=== PATIENT | male | born 1950 | race Caucasian/White ===

== ENCOUNTER 2018-01-26 21:26 | Observation (INO) ==
--- NOTE | 2018-01-26 21:43 | ED ---
HPI General Chief Complaint: Chest Pain Stated Complaint: Chest pain/left arm numbness Time Seen by Provider: 01/26/18 21:36 Source: patient Mode of arrival: ambulatory Limitations: no limitations History of Present Illness HPI narrative: 67-year-old male presents to the emergency department for complaint of 1 hour of left-sided chest pain radiating to the left upper extremity and subscapular region. Patient states onset at rest. Patient took 2 full-strength aspirin prior to arrival to the emergency department. Patient states initial pain was 6-7/10 in intensity currently is 2/10 in intensity. Patient states left upper extremity involvement has resolved. Patient states he initially felt like he been punched in the chest. Patient states now he has just some mild discomfort. No shortness of breath no sweats no nausea no vomiting no referred neck jaw mid scapular or abdominal pain. Patient has history of previous myocardial infarction in 2002 underwent cardiac catheterization at that time and had stent placement. Last stress test was within the past 1-2 years and was reportedly normal. Patient has an appointment with his director of program management Dr. Fontanez scheduled for next month. Patient has been doing well otherwise is also being treated for hypertension and dyslipidemia. Patient denies tobacco use or diabetes. Patient has premature onset heart disease in his father and brother both of whom in their 60s. MD complaint: Reports chest pain Onset (ago): hour(s) (1) Duration: constant and improved Onset: during rest Pain location: Reports left chest Severity: severe Severity scale (1-10): 7 Quality: Reports aching and other (like being punched) Pain radiation: Reports LUE Relieving factors: nitroglycerin (has medixcation at home but did not take) and other (aspirin) Exacerbating factors: nothing Context: Reports other (none) Associated symptoms: Denies nausea, vomiting, diaphoresis, dyspnea, sense of impending doom, syncope, palpitations and leg swelling Treatments prior to arrival chest pain: Reports aspirin Related Data Allergies Allergy/AdvReac Type Severity Reaction Status Date / Time No Known Allergies Allergy Unverified 01/26/18 21:40 Review of Systems ROS: all other systems reviewed are negative PMFSH History History Provided By: Patient (mi, htn, cholesterol) Medical History Medical History [place], old (Acute) Surgical History Surgical History H/O adenoidectomy (Acute) Hx of heart artery stent (Acute) Social History Social History Substance History: No History of Abuse Second Hand Smoke Exposure: No Smoking Status: Former smoker Tobacco Type: Cigarettes How Often Do You Have a Drink Containing Alcohol: Monthly or less Recent Out of Country Travel within the Last 8 Weeks: No Exam Narrative Exam Narrative: GENERAL: Well-nourished, well-developed patient. SKIN: Focused skin assessment warm/dry. HEAD: Normocephalic. EYES: No scleral icterus. No injection or drainage. NECK: Supple, trachea midline. No JVD or lymphadenopathy. CARDIOVASCULAR: Regular rate and rhythm without murmurs, gallops, or rubs. RESPIRATORY: Breath sounds equal bilaterally. No accessory muscle use. GASTROINTESTINAL: Abdomen soft, non-tender, nondistended. MUSCULOSKELETAL: No cyanosis, or edema. BACK: Nontender without obvious deformity. No CVA tenderness. Course Consultations Consultation #1: Discussed case with patient's director of program management Dr. Devine request patient to be admitted to CICU to medicine service with Nitropaste 1 inch to chest wall and one-time dose of Lovenox administered and consult to Dr. Devine for the a.m. call placed to [facility] for [facility]; per Dr Hemphill --admit to Dr West Time: 22:55 Initial Documented Vital Signs Temperature 98.2 F 01/26/18 21:36 Pulse Rate 71 01/26/18 21:36 Respiratory Rate 15 01/26/18 21:36 Blood Pressure 154/91 H 01/26/18 21:36 Pulse Oximetry 98 01/26/18 21:36 Last Documented Vital Signs Temperature 98.2 F 01/26/18 21:36 Pulse Rate 50 L 01/26/18 22:53 Respiratory Rate 16 01/26/18 22:53 Blood Pressure 120/70 01/26/18 22:53 Pulse Oximetry 97 01/26/18 22:53 Medical Decision Making MDM Narrative Medical decision making narrative: 67-year-old male with known CAD previous MO hypertension and dyslipidemia presents with 1 hour of left-sided chest pain radiating to the left upper extremity and left scapula denies any mid scapular tearing pain patient states left upper extremity symptoms have resolved patient states pain was initially 6-7/10 intensity is presently 2/10 in intensity took 650 mg of aspirin prior to arrival to the emergency department. Has access to nitroglycerin but did not take this medication. Patient is followed by cardiology. Patient placed on rn cardiac IV access obtain EKG performed shows sinus rhythm rate 68 left axis deviation QS anteroseptally age- indeterminate. At 10 PM after 1 sublingual nitroglycerin patient is chest pain-free, 0/10 in intensity. At 10:45 PM cardiac enzymes are found to be in normal range patient denies any chest pain but states he does have some tingling in his left hand patient given bolus of normal saline and repeat sublingual dilution x1 administered for possible anginal equivalent. Call placed to patient's director of program management. Medical Screen Exam Complete: Yes Emergency Medical Condition: Yes Differential Diagnosis Differential Diagnosis: Chest pain, ACS, [place], aortic dissection Medical Records Medical records reviewed: Yes I reviewed the patient's medical records. Lab Data Result diagrams: 01/26/18 21:44 01/26/18 21:44 Lab Results 01/26/18 01/26/18 01/26/18 Range/Units 21:44 21:44 21:44 WBC 8.3 (4.0-11.0) th/mm3 RBC 4.78 (4.50-5.90) mil/mm3 Hgb 15.0 (13.0-17.0) gm/dL Hct 43.5 (39.0-51.0) % MCV 91.0 (80.0-100.0) fL MCH 31.5 (27.0-34.0) pg MCHC 34.6 (32.0-36.0) % RDW 13.8 (11.6-17.2) % Plt Count 208 (150-450) th/mm3 MPV 8.5 (7.0-11.0) fL Prelim Diff (Auto) Slide review pending Neut % (Auto) 61.0 (16.0-70.0) % Lymph % (Auto) 23.2 (9.0-44.0) % [place] % (Auto) 12.5 H (0.0-8.0) % Eos % (Auto) 2.2 (0.0-4.0) % Baso % (Auto) 1.1 (0.0-2.0) % Neut # (Auto) 5.1 (1.8-7.7) th/mm3 Lymph # (Auto) 1.9 (1.0-4.8) th/mm3 [place] # (Auto) 1.0 H (0.0-0.9) th/mm3 Eos # (Auto) 0.2 (0.0-0.4) th/mm3 Baso # (Auto) 0.1 (0.0-0.2) th/mm3 WBC Differential . Diff Scan Auto diff confirmed Differential Comment . Platelet Estimate Normal (Normal) Platelet Morphology Normal (Normal) RBC Morphology Normal (Normal) PT 10.3 (9.8-11.6) sec INR 1.0 Ratio APTT 20.3 L (24.3-30.1) sec Sodium 140 (136-145) meq/L Potassium 3.9 (3.5-5.1) meq/L Chloride 105 (98-107) meq/L Carbon Dioxide 24.3 (21.0-32.0) meq/L Anion Gap 11 (5-15) meq/L BUN 9 (7-18) mg/dL Creatinine 1.06 (0.60-1.30) mg/dL Estimated GFR 70 L (>89) mL/min Random Glucose 105 (74-106) mg/dL Calcium 9.0 (8.5-10.1) mg/dL Magnesium 2.2 (1.5-2.5) mg/dL Total Bilirubin 0.9 (0.2-1.0) mg/dL AST 28 (15-37) U/L ALT 30 (12-78) U/L Alkaline Phosphatase 98 (45-117) U/L Total Creatine Kinase 142 (39-308) U/L CK-MB (CK-2) 2.1 (0.5-3.6) ng/mL Troponin I Less than 0.02 L (0.02-0.05) ng/mL Total Protein 7.7 (6.4-8.2) g/dL Albumin 4.1 (3.4-5.0) g/dL Lipase 156 (73-393) U/L Imaging Data Radiologist's impression: Chest X-Ray 01/26/18 21:36 CONCLUSION: No evidence of acute cardiopulmonary disease. ECG Data Interpretation: EKG: Normal sinus rhythm rate 70 left axis deviation LVH by voltage criterion QS anteroseptally age-indeterminate no acute ST elevation Discharge Plan Discharge Disposition Patient Disposition: 30 Still Patient Discharge Condition Condition: Stable Discharge Details Diagnosis: Chest pain Physicians Team ED Provider: Prachi Boothe Primary Care Provider: Primary Care Matthewi,No Discharge Instructions Patient Printed Instructions: Chest Pain (ED) Status ED Status: With Doctor
--- NOTE | 2018-01-26 21:56 | XR ---
EXAM DATE: 01/26/2018 9:36 PM EDT AGE/SEX: 67 years / Male INDICATIONS: Chest pain. CLINICAL DATA: This is the patient's initial encounter. Patient reports that signs and symptoms have been present for 1 day and indicates a pain score of 6/10. MEDICAL/SURGICAL HISTORY: Hypertension. Heart attack. Coronary artery stent. COMPARISON: [facility] – [place], CHEST SINGLE AP, 07/26/2015. . FINDINGS: A single AP view of the chest demonstrates the lungs to be symmetrically aerated without evidence of mass, infiltrate or effusion. The cardiomediastinal contours are unremarkable. Osseous structures a re intact. CONCLUSION: No evidence of acute cardiopulmonary disease. Electronically signed by: Héctor Moody MD 01/26/2018 9:55 PM EDT
[2018-01-26 21:59] LABS: Baso # (Auto) 0.1 th/mm3 (0.0-0.2); Baso % (Auto) 1.1 % (0.0-2.0); Eos # (Auto) 0.2 th/mm3 (0.0-0.4); Eos % (Auto) 2.2 % (0.0-4.0); Hematocrit 43.5 % (39.0-51.0); Lymph # (Auto) 1.9 th/mm3 (1.0-4.8); Lymph % (Auto) 23.2 % (9.0-44.0); Mean Corpuscular HGB Conc 34.6 % (32.0-36.0); Mean Corpuscular Hemoglobin 31.5 pg (27.0-34.0); Mean Platelet Volume 8.5 fL (7.0-11.0); Mono % (Auto) 12.5 % (0.0-8.0); Neut # (Auto) 5.1 th/mm3 (1.8-7.7); Platelet Count 208 th/mm3 (150-450); Red Blood Count 4.78 mil/mm3 (4.50-5.90); Red Cell Distribution Width 13.8 % (11.6-17.2); White Blood Count 8.3 th/mm3 (4.0-11.0)
[2018-01-26 22:18] LABS: Albumin 4.1 g/dL (3.4-5.0); Anion Gap 11 meq/L (5-15); Aspartate Aminotransferase 28 U/L (15-37); Blood Urea Nitrogen 9 mg/dL (7-18); Carbon Dioxide 24.3 meq/L (21.0-32.0); Chloride 105 meq/L (98-107); Glomerular Filtration Rate 70 mL/min (>89); Glucose,Random 105 mg/dL (74-106); Lipase 156 U/L (73-393); Magnesium 2.2 mg/dL (1.5-2.5); Potassium 3.9 meq/L (3.5-5.1); Sodium 140 meq/L (136-145)
[2018-01-26 22:19] LABS: Alanine Aminotransferase 30 U/L (12-78)
[2018-01-26 22:22] LABS: Activated Partial Thrombo Time 20.3 sec (24.3-30.1); Alkaline Phosphatase 98 U/L (45-117); Creatine Kinase 142 U/L (39-308); Prothrombin Time 10.3 sec (9.8-11.6); Total Protein 7.7 g/dL (6.4-8.2)
[2018-01-26 22:35] LABS: Creatine Kinase MB 2.1 ng/mL (0.5-3.6)
[2018-01-26 22:48] LABS: Platelet Estimate Normal (Normal); Platelet Morphology Normal (Normal); RBC Morphology Normal (Normal)
[2018-01-26] MEDS ORDERED: Enoxaparin Inj 80 MG/0.8 ML Syringe SQ ONE (22:56)
[2018-01-26] MEDS ORDERED: Sodium Chlor 0.9% Inj 500 ML IV.SIG SCH (23:00)
[2018-01-27 05:37] LABS: Creatine Kinase 91 U/L (39-308)
[2018-01-27] MEDS: Aspirin 325 MG Tablet PO SCH (08:43)
--- NOTE | 2018-01-27 09:27 | P.HPIM ---
History of Present Illness Primary Care Physician: No Primary Care Physician History of Present Illness: Pt is 67 yo man with cad/lad stenting 2002. Pt was at work yesterday when he began feeling bad. Says he was nauseated. Doing nonexertional type work. Went home and developed tightness in upper left chest with tingling/numbness in left arm. Denies weakness in left arm and no neck pain or headache. Says this was similar to his heart attack in 2002. Pt reports improvement of pain with sl ntg and then resolution after lovenox injection and topical ntg. Is able to have some reproducibility with palpation over left upper chest. TAkes asa/jose roberto/bb at home. PMH 2002. cad/lad angioplasty/stenting. also mild mod dz rca/cx. mild /mod mr htn nasal septal surgery/adenoids SH: 1ppd tob x 25yrs. quit 15yrs ago daily glass wine. occasional beer FH. NC - Diagnosis (1) Chest pain (2) CAD (coronary artery disease) Review of Systems left chest pain left arm tingling PMFSH - History History Provided By: Patient - Medical History Medical History: Medical History (Last Updated 01/26/18 @ 21:39 by Naila Péerz) [place], old - Surgical History Surgical History: Surgical History (Last Updated 01/26/18 @ 21:39 by Naila Pérez) H/O adenoidectomy Hx of heart artery stent - Tobacco History Second Hand Smoke Exposure: No Tobacco Use In Past 30 Days: No Smoking Status: Former smoker Tobacco Type: Cigarettes - Alcohol History How Often Do You Have a Drink Containing Alcohol: Monthly or less - Substance Use History Substance History: No History of Abuse - Travel History Recent Travel Out of the Country Within the Last 8 Weeks: No - Immunization History Tetanus Immunization: >5 Years Hx Influenza Vaccine This Season: No Medications and Allergies Active Medications: Active Medications Aspirin (Aspirin) 325 mg PO DAILY [facility] Last Admin: 01/27/18 08:43 Dose: 325 mg Sodium Chloride (Ns Inj) 500 mls @ 0 mls/hr IV.SIG BOLUS [facility] Last Infusion: 01/27/18 00:00 Dose: Infused Nitroglycerin (Nitro-Bid 2% Oint) 1 inch TOPICAL Q6HR [facility] Last Admin: 01/27/18 06:47 Dose: Not Given Sodium Chloride (Ns Flush) 2 ml IV.FLUSH UNSCH PRN PRN Reason: FLUSH AFTER USING IV ACCESS Last Admin: 01/26/18 21:55 Dose: 2 ml Allergies Allergy/AdvReac Type Severity Reaction Status Date / Time No Known Allergies Allergy Unverified 01/26/18 21:40 Exam Vital signs: Vital Signs 01/26/18 21:36 01/26/18 21:57 01/26/18 22:53 Temperature 98.2 F Pulse Rate 71 60 50 L Respiratory Rate 15 15 16 Blood Pressure 154/91 H 117/71 120/70 Pulse Oximetry 98 97 97 01/27/18 02:57 01/27/18 02:59 01/27/18 03:57 Temperature 97.5 F L Pulse Rate 62 56 L 50 L Respiratory Rate 18 Blood Pressure 124/68 Pulse Oximetry 96 01/27/18 04:00 01/27/18 05:00 01/27/18 06:00 Temperature 97.6 F Pulse Rate 74 70 49 L Respiratory Rate 18 Blood Pressure 106/60 Pulse Oximetry 97 Intake & Output 01/26/18 01/27/18 01/27/18 18:59 06:59 18:59 Intake Total 500 / 500 Balance 500 / 500 Weight 72.8 kg Intake: IV 500 / 500 NS Inj 500 ML @ Wide Open IV. 500 / 500 SIG BOLUS [facility] Rx#:[id number] Oral 0 / 0 Other: # Voids 1 Date of Last Bowel Movement 01/26/18 heart reg lung cta abd s/nt ext no edema mild pain to palpation over left outer pectoralis muscle Results - Labs CBC & Chem 7: 01/26/18 21:44 01/26/18 21:44 Labs: Short CBC 01/26/18 Range/Units 21:44 WBC 8.3 (4.0-11.0) th/mm3 Hgb 15.0 (13.0-17.0) gm/dL Hct 43.5 (39.0-51.0) % Plt Count 208 (150-450) th/mm3 BMP 01/26/18 21:44 Sodium 140 Potassium 3.9 Chloride 105 Carbon Dioxide 24.3 BUN 9 Creatinine 1.06 Calcium 9.0 Cardiac Enzymes 01/26/18 01/27/18 Range/Units 21:44 04:42 Total Creatine Kinase 142 91 (39-308) U/L CK-MB (CK-2) 2.1 (0.5-3.6) ng/mL Troponin I Less than 0.02 L Less than 0.02 L (0.02-0.05) ng/mL Liver Function 01/26/18 Range/Units 21:44 Total Bilirubin 0.9 (0.2-1.0) mg/dL AST 28 (15-37) U/L ALT 30 (12-78) U/L Alkaline Phosphatase 98 (45-117) U/L Albumin 4.1 (3.4-5.0) g/dL - Imaging Impressions Chest X-Ray 01/26/18 21:36 CONCLUSION: No evidence of acute cardiopulmonary disease. Caprini VTE Risk Assessment Caprini VTE Risk Assessment: Moderate/High Risk (score >= 2) Caprini Risk Assessment Model: Point Value = 1 Point Value = 2 Point Value = 3 Point Value = 5 Age 41-60 Minor surgery BMI > 25 kg/m2 Swollen legs Varicose veins or History of unexplained or recurrent spontaneous Oral contraceptives or hormone replacement Sepsis (< 1 month) Serious lung disease, including pneumonia (< 1 month) Abnormal pulmonary function Acute myocardial infarction Congestive heart failure (< 1 month) History of inflammatory bowel disease Medical patient at bed rest Age 61-74 Arthroscopic surgery Major open surgery (> 45 min) Laparoscopic surgery (> 45 min) Malignancy Confined to bed (> 72 hours) Immobilizing plaster cast Central venous access Age >= 75 History of VTE Family history of VTE Factor V Leiden Prothrombin [id number] Lupus anticoagulant Anticardiolipin antibodies Elevated serum homocysteine Heparin-induced thrombocytopenia Other congenital or acquired thrombophilia Stroke (< 1 month) Elective arthroplasty Hip, pelvis, or leg fracture Acute spinal cord injury (< 1 month) Prophylaxis Regimen: Total Risk Factor Score Risk Level Prophylaxis Regimen 0-1 Low Early ambulation 2 Moderate Order ONE of the following: *Sequential Compression Device (SCD) *Heparin 5000 units SQ BID 3-4 Higher Order ONE of the following medications: *Heparin 5000 units SQ TID *Enoxaparin/Lovenox 40 mg SQ daily (WT < 150 kg, CrCl > 30 mL/min) *Enoxaparin/Lovenox 30 mg SQ daily (WT < 150 kg, CrCl > 10-29 mL/min) *Enoxaparin/Lovenox 30 mg SQ BID (WT < 150 kg, CrCl > 30 mL/min) AND/OR *Sequential Compression Device (SCD) 5 or more Highest Order ONE of the following medications: *Heparin 5000 units SQ TID (Preferred with Epidurals) *Enoxaparin/Lovenox 40 mg SQ daily (WT < 150 kg, CrCl > 30 mL/min) *Enoxaparin/Lovenox 30 mg SQ daily (WT < 150 kg, CrCl > 10-29 mL/min) *Enoxaparin/Lovenox 30 mg SQ BID (WT < 150 kg, CrCl > 30 mL/min) AND *Sequential Compression Device (SCD) Assessment and Plan - Assessment (1) Chest pain Code(s): R07.9 - Chest pain, unspecified Status: Acute Plan: 1. cad. lad stenting 2002 presenting with left cp/left arm tingling mild repoducibility on palpation left pectoralis Pt had relief of pain with ngt cardiology consulted to decide if laura/lhc needed. lovenox and asa given resume his asa/bb/jose roberto if no cad found then trial of nsaid. await cardiology reccs. (2) CAD (coronary artery disease) Code(s): I25.10 - Atherosclerotic heart disease of [place] coronary artery without angina pectoris Status: Acute H&P: Quality - VTE Deep Vein Thrombosis/Pulmonary Embolism Present on Admission: No (1) Chest pain Qualifiers: Chest pain type: precordial pain Qualified Code(s): R07.2 - Precordial pain
--- NOTE | 2018-01-27 10:24 | P.CONCA ---
History of Present Illness Service: Cardiology Consult date: 01/27/18 Reason for Consult: Chest pain Primary Care Provider: No Primary Care Physician Chief Complaint: chest pain History of Present Illness: This is a 67 year old male well known to practice who presented to ER with complaints of left sided chest pain for several hours. States that he was at work yesterday afternoon when about 2 pm started having pain to his left side of chest in axillary area radiating to the left arm with left arm numbness. Pain was dull and constant and lasting for 6 or so hours. Brought on with opening boxes at work. He was not exerting himself. Denies associated shortness of breath, dizziness, palpitations, diaphoresis, or nausea. He came home from work and continued to feel same so came to ER for evaluation. States it felt similar to how he felt when he had his heart attack in 2002. Pain was eased with NTG which was given in the Emergency Room. He does have history of CAD with [place] and stent placement to LAD. He is currently without pain on exam, no shortness of breath, no dizziness, no diaphoresis. Troponin has been negative thus far x 2. No acute EKG changes. Review of Systems Ears, Nose, Mouth, and Throat: Reports hearing loss Cardiovascular: Reports chest pain, Denies excessive sweating, Denies fainting, Denies fast heart rate, Denies foot swelling, Denies rapid, pounding, or irregular heartbeat, Denies shortness of breath, Denies shortness of breath causing sudden awakening Respiratory: Denies shortness of breath Gastrointestinal: Denies abdominal pain Musculoskeletal: Reports numbness Comments: to left arm on arrival to er Neurologic: Denies dizziness PMFSH - History History Provided By: Patient - Medical History Medical History: Medical History (Last Updated 01/26/18 @ 21:39 by Naila Pérez) [place], old - Surgical History Surgical History: Surgical History (Last Updated 01/26/18 @ 21:39 by Naila Pérez) H/O adenoidectomy Hx of heart artery stent - Social History I have reviewed the patient's Social History: Yes - Tobacco History Second Hand Smoke Exposure: No Tobacco Use In Past 30 Days: No Smoking Status: Former smoker Tobacco Type: Cigarettes Number of Pack Years (if former smoker): 38 Smoking End Date: 2002 - Alcohol History How Often Do You Have a Drink Containing Alcohol: Monthly or less - Substance Use History Substance History: No History of Abuse - Travel History Recent Travel Out of the Country Within the Last 8 Weeks: No - Immunization History Tetanus Immunization: >5 Years Hx Influenza Vaccine This Season: No Medications and Allergies Allergies Allergy/AdvReac Type Severity Reaction Status Date / Time No Known Allergies Allergy Unverified 01/26/18 21:40 Home Medications Medication Instructions Recorded Confirmed Type aspirin [Aspirin Low Dose] PO DAILY 01/28/18 History enalapril maleate 5 mg PO DAILY 01/28/18 01/28/18 History metoprolol tartrate 50 mg PO DAILY 01/28/18 01/28/18 History Active Medications: Active Medications Aspirin (Aspirin) 325 mg PO DAILY [facility] Last Admin: 01/27/18 08:43 Dose: 325 mg Enalapril Maleate (Vasotec) 5 mg PO HS [facility] Sodium Chloride (Ns Inj) 500 mls @ 0 mls/hr IV.SIG BOLUS [facility] Last Infusion: 01/27/18 00:00 Dose: Infused Metoprolol Tartrate (Lopressor) 50 mg PO HS [facility] Nitroglycerin (Nitro-Bid 2% Oint) 1 inch TOPICAL Q6HR [facility] Last Admin: 01/27/18 06:47 Dose: Not Given Sodium Chloride (Ns Flush) 2 ml IV.FLUSH UNSCH PRN PRN Reason: FLUSH AFTER USING IV ACCESS Last Admin: 01/26/18 21:55 Dose: 2 ml Exam Vital signs: Vital Signs 01/26/18 21:36 01/26/18 21:57 01/26/18 22:53 Temperature 98.2 F Pulse Rate 71 60 50 L Respiratory Rate 15 15 16 Blood Pressure 154/91 H 117/71 120/70 Pulse Oximetry 98 97 97 01/27/18 02:57 01/27/18 02:59 01/27/18 03:57 Temperature 97.5 F L Pulse Rate 62 56 L 50 L Respiratory Rate 18 Blood Pressure 124/68 Pulse Oximetry 96 01/27/18 04:00 01/27/18 05:00 01/27/18 06:00 Temperature 97.6 F Pulse Rate 74 70 49 L Respiratory Rate 18 Blood Pressure 106/60 Pulse Oximetry 97 Intake & Output 01/26/18 01/27/18 01/27/18 18:59 06:59 18:59 Intake Total 500 / 500 Balance 500 / 500 Weight 72.8 kg Intake: IV 500 / 500 NS Inj 500 ML @ Wide Open IV. 500 / 500 SIG BOLUS [facility] Rx#:[id number] Oral 0 / 0 Other: # Voids 1 Date of Last Bowel Movement 01/26/18 - Constitutional no acute distress - Routine HEENT Exam Head: Present: normocephalic, atraumatic Eye: Present: EOMI ENT: Present: mucous membranes moist - Routine Neck Exam Present: supple. Absent: JVD, carotid bruit - Routine Chest/Breast/Axilla Exam Axillae: Present: tenderness Comments: left axilla tenderness on palpation - Routine Respiratory Exam Present: CTA bilaterally. Absent: respiratory distress - Routine Cardiovascular Exam Present: RRR, S1, S2, murmur. Absent: JVD Comments: 1/6 systolic murmur to left sternal border. - Routine Abdominal Exam Present: soft, normoactive bowel sounds. Absent: tenderness - Routine Extremities Exam Present: pulses intact, normal capillary refill. Absent: edema - Routine Skin Exam Present: intact, dry, warm - Routine Neurological Exam Present: alert, oriented X3 Results 01/26/18 21:44 01/26/18 21:44 Cardiac Enzymes 01/26/18 01/27/18 Range/Units 21:44 04:42 AST 28 (15-37) U/L CK-MB (CK-2) 2.1 (0.5-3.6) ng/mL Troponin I Less than 0.02 L Less than 0.02 L (0.02-0.05) ng/mL Coagulation 01/26/18 Range/Units 21:44 PT 10.3 (9.8-11.6) sec APTT 20.3 L (24.3-30.1) sec CBC 01/26/18 Range/Units 21:44 WBC 8.3 (4.0-11.0) th/mm3 RBC 4.78 (4.50-5.90) mil/mm3 Hgb 15.0 (13.0-17.0) gm/dL Hct 43.5 (39.0-51.0) % Plt Count 208 (150-450) th/mm3 Neut # (Auto) 5.1 (1.8-7.7) th/mm3 Lymph # (Auto) 1.9 (1.0-4.8) th/mm3 [place] # (Auto) 1.0 H (0.0-0.9) th/mm3 Eos # (Auto) 0.2 (0.0-0.4) th/mm3 Baso # (Auto) 0.1 (0.0-0.2) th/mm3 Comprehensive Metabolic Panel 01/26/18 Range/Units 21:44 Sodium 140 (136-145) meq/L Potassium 3.9 (3.5-5.1) meq/L Chloride 105 (98-107) meq/L Carbon Dioxide 24.3 (21.0-32.0) meq/L BUN 9 (7-18) mg/dL Creatinine 1.06 (0.60-1.30) mg/dL Calcium 9.0 (8.5-10.1) mg/dL AST 28 (15-37) U/L ALT 30 (12-78) U/L Alkaline Phosphatase 98 (45-117) U/L Total Protein 7.7 (6.4-8.2) g/dL Albumin 4.1 (3.4-5.0) g/dL Intake and Output 01/26/18 01/27/18 01/27/18 22:59 06:59 14:59 Intake Total 500 / 500 Balance 500 / 500 Intake: IV 500 / 500 NS Inj 500 ML @ Wide Open IV. 500 / 500 SIG BOLUS [facility] Rx#:[id number] Oral 0 / 0 Other: # Voids 1 Date of Last Bowel Movement 01/26/18 Weight 72.575 kg 72.8 kg - Imaging and Cardiology Imaging: Impressions Chest X-Ray 01/26/18 21:36 CONCLUSION: No evidence of acute cardiopulmonary disease. - EKG Interpretation EKG: no acute changes Assessment and Plan - Plan 1. Chest pain-. Continue beta sergey and Asa. appears musculosk. further W/U as outpt. 2. Hyperlipidemia-will continue statin. see dictated note . Thank you so much for this consult.
[2018-01-27 11:09] LABS: Creatine Kinase 102 U/L (39-308)
--- NOTE | 2018-01-27 15:29 | ECG ---
Date Performed: 01/26/2018 Time Performed: 21:39:46 PTAGE: 67 years EKG: Sinus rhythm WITH SINUS ARRHYTHMIA MARKED LEFT AXIS DEVIATION VOLTAGE CRITERIA FOR LVH POSSIBLE SEPTAL MYOCARDIAL INFARCTION ABNORMAL ECG PREVIOUS TRACING : 07/27/2015 02.23 DOCTOR: Karo Jacobson Interpretating Date/Time 01/27/2018 15:26:25
--- NOTE | 2018-01-27 15:36 | ECG ---
Date Performed: 01/27/2018 Time Performed: 04:51:10 PTAGE: 67 years EKG: Sinus rhythm Prolonged QT interval Possible left anterior fascicular block Possible anteroseptal infarct - age un determined Abnormal ECG PREVIOUS TRACING : 01/26/2018 21.39 Since the previous tracing, no significant change noted DOCTOR: Karo Jacobson Interpretating Date/Time 01/27/2018 15:35:18
[2018-01-27] MEDS ORDERED: Acetaminophen 325 MG Tablet PO PRN (18:25)
[2018-01-27] MEDS ORDERED: Metoprolol Tartrate 50 MG Tablet PO SCH (21:00)
--- NOTE | 2018-01-27 21:53 | MB ---
cc: Alonzo Devine MD DATE: 01/27/2018 Please refer to the history and physical per the note put by my nurse practitioner, Mrs. Joceline Singh. The patient seen and examined, plan discussed with him and he is in agreement. History of anterior wall myocardial infarction, status post LAD stenting/atypical chest discomfort reproduced by deep palpation. When I further discussed what happened with him, he indicated that the pain was sharp in nature and the numbness between the elbow and the hand happened later on. The pain was continuous for a few hours. He has negative troponins and no EKG changes, which makes it unlikely that it is cardiac in nature, and it was reproducible by deep palpation, which makes it likely a musculoskeletal discomfort. When he presented with an OH, it was chest heaviness and he is now realizing it is different from his pain he presented with in 2002 when he had his myocardial infarction. He is ruled out by serial cardiac markers and his EKG shows no ischemic changes, as mentioned above, and he can be discharged with further workup as an outpatient. I thank you for the consultation. MD SAIGE Dejesus/jeanine , 09:12 PM , 09:17 PM
--- NOTE | 2018-01-28 08:13 | P.PNIM ---
Subjective Interval history: no cp or sob ready for dc Physical Exam Vital signs: Vital Signs 01/27/18 09:00 01/27/18 10:00 01/27/18 11:00 Temperature Pulse Rate 68 54 L 53 L Respiratory Rate Blood Pressure Pulse Oximetry 01/27/18 12:00 01/27/18 13:00 01/27/18 14:00 Temperature 98.2 F Pulse Rate 52 L 54 L 52 L Respiratory Rate 18 Blood Pressure 92/53 L Pulse Oximetry 95 01/27/18 15:00 01/27/18 16:00 01/27/18 17:00 Temperature 98.2 F Pulse Rate 83 55 L 87 Respiratory Rate 18 Blood Pressure 95/52 L Pulse Oximetry 95 01/27/18 18:00 01/27/18 19:00 01/27/18 20:00 Temperature 98.1 F Pulse Rate 88 81 67 Respiratory Rate 16 Blood Pressure 107/65 Pulse Oximetry 96 01/27/18 21:00 01/27/18 22:00 01/27/18 23:00 Temperature Pulse Rate 70 59 L 51 L Respiratory Rate Blood Pressure Pulse Oximetry 01/28/18 00:00 01/28/18 01:00 01/28/18 01:58 Temperature 97.7 F Pulse Rate 50 L 60 55 L Respiratory Rate 16 Blood Pressure 120/67 Pulse Oximetry 97 01/28/18 03:00 01/28/18 03:50 01/28/18 04:00 Temperature 98 F Pulse Rate 53 L 53 L 54 L Respiratory Rate 16 Blood Pressure 120/66 Pulse Oximetry 97 01/28/18 05:00 01/28/18 06:00 01/28/18 07:00 Temperature Pulse Rate 58 L 67 58 L Respiratory Rate Blood Pressure Pulse Oximetry Intake & Output 01/27/18 01/28/18 01/28/18 18:59 06:59 18:59 Intake Total 720 / 720 480 / 480 Output Total 950 / 950 Balance -230 / -230 480 / 480 Weight 72.8 kg Intake: Oral 720 / 720 480 / 480 Output: Urine 950 / 950 Other: # Voids 3 3 Date of Last Bowel Movement 02/06/18 01/27/18 heart reg lung cta abd s/nt ext no edema Results - Labs CBC & Chem 7: 01/26/18 21:44 01/26/18 21:44 Laboratory Results - last 24 hr 01/27/18 10:01 Total Creatine Kinase 102 Troponin I Less than 0.02 L Assessment and Plan - Assessment (1) Chest pain Code(s): R07.9 - Chest pain, unspecified Status: Acute Plan: 1. cad. lad stenting 2002 presenting with left cp/left arm tingling mild repoducibility on palpation left pectoralis Pt had relief of pain with ngt cardiology consulted to decide if laura/lhc needed. lovenox and asa given resume his asa/bb/jose roberto cardiology feels more msk. pt advised to use prn advil/ibuprofen if pain returns and notify his doctor. dc home. (2) CAD (coronary artery disease) Code(s): I25.10 - Atherosclerotic heart disease of [place] coronary artery without angina pectoris Status: Acute (1) Chest pain Qualifiers: Chest pain type: precordial pain Qualified Code(s): R07.2 - Precordial pain
[2018-01-28] MEDS: Aspirin 325 MG Tablet PO SCH (08:32)
[2018-01-28 09:20] VITALS: BP 128/77; RESP 18; TEMP 98.2; O2SAT 98
[2018-01-28 10:45] VITALS: PULSE 87
== END 2018-01-28 09:53 | disposition home or self-care (01) ==
LOC: NEDA 21:26 → NEPC 21:26 → NEDA 01-27 01:59 → HCPC 01-27 03:38
PROVIDERS: ADMIT Hospitalist; ATTEND Hospitalist